=== PATIENT | female | born 1990 | race Caucasian/White ===

== ENCOUNTER 2019-12-29 08:00 | Outpatient (RCR) | payer MEDICARE, MEDICAID, SELFPAY ==
[2019-12-23 12:35] LABS: Beta HCG Quantitative 5.14 mIU/ML
[2019-12-29 13:03] LABS: Beta HCG Quantitative 5.58 mIU/ML
== END 2020-03-20 23:59 | disposition home or self-care (01) ==
LOC: ANHLAB 08:00
PROVIDERS: PCP Nurse Practitioner Family; Visit Provider Obstetrics & Gynecology
DX: O03.9 Complete or unspecified spontaneous abortion without complication (principal)
CPT/HCPCS: 36415; 84702

== ENCOUNTER 2020-11-08 09:37 | Outpatient (CLI) | payer MEDICARE, MEDICAID, SELFPAY ==
[2020-11-08 19:57] LABS: Thyroid Stimulating Hormone 0.323 uIU/mL (0.465-4.680)
[2020-11-08 21:28] LABS: Free T4 Free Thyroxine 1.11 ng/mL (0.78-2.19)
[2020-11-12 08:35] LABS: FSH 51.5 mIU/mL (***); Prolactin 2.9 ng/mL (***)
== END 2020-11-08 09:38 | disposition home or self-care (01) ==
LOC: ANHBWCLAB 09:40
PROVIDERS: PCP Nurse Practitioner Family; Visit Provider Obstetrics & Gynecology
DX: N91.2 Amenorrhea, unspecified (principal)
CPT/HCPCS: 36415; 83001; 84146; 84439; 84443

== ENCOUNTER 2021-02-06 10:35 | Outpatient (CLI) | payer MEDICARE, MEDICAID, SELFPAY ==
[2021-02-06 19:57] LABS: Free T4 Free Thyroxine 0.79 ng/mL (0.78-2.19)
[2021-02-06 20:07] LABS: Thyroid Stimulating Hormone 0.283 uIU/mL (0.465-4.680)
== END 2021-02-06 10:36 | disposition home or self-care (01) ==
PROVIDERS: PCP Nurse Practitioner Family; Visit Provider Obstetrics & Gynecology
DX: N91.4 Secondary oligomenorrhea (principal); R79.89 Other specified abnormal findings of blood chemistry
CPT/HCPCS: 36415; 84439; 84443

== ENCOUNTER 2022-08-28 09:11 | Emergency (ER) | payer MEDICARE, MEDICAID, SELFPAY ==
[2022-08-28 09:18] VITALS: BP 120/70; PULSE 79; RESP 16; TEMP 36.6; O2SAT 100
--- NOTE | 2022-08-28 09:22 | ED.URI ---
HPI - URI/Sore Throat General Chief Complaint: Upper Respiratory Infection Stated Complaint: Sore Throat/Cough Time Seen by Provider: 08/28/22 09:22 Source: patient and RN notes reviewed History of Present Illness HPI Narrative: Patient is a 32-year-old female who presents to urgent care with complaints of sore throat, cough since Friday. Patient states she has been using ibuprofen and cough drops. Also reports right ear pain, runny nose and chest congestion. Patient states that she is not using albuterol haler and some time however she does have exercise-induced asthma. Reports of some intermittent shortness of breath. Denies any fever, nausea, vomiting or exposures. No other acute complaints. No acute distress noted. Patient aware of the plan care. Some parts of this dictation were generated by voice recognition software and may contain typographical and/or grammatical inaccuracies. Related Data Home Medications Medication Instructions Recorded Confirmed atomoxetine 60 mg capsule 60 mg PO DAILY 11/08/20 08/28/22 diazepam 10 mg tablet 10 mg PO TID PRN Anxiety 11/08/20 08/28/22 fluoxetine 20 mg capsule 20 mg PO DAILY 11/08/20 08/28/22 hydroxyzine HCl 25 mg tablet 25 mg PO TID PRN Anxiety 11/08/20 08/28/22 lamotrigine 100 mg tablet 100 mg PO BID 11/08/20 08/28/22 quetiapine 300 mg tablet,extended 600 mg PO QHS 05/08/22 08/28/22 release 24 hr Allergies Allergy/AdvReac Type Severity Reaction Status Date / Time meloxicam Allergy Unknown RASH Verified 08/28/22 09:39 venom-wasp Allergy Unknown Verified 08/28/22 09:39 Review of Systems Review of Systems: CONSTITUTIONAL: Denies fever, chills, or sweats. EYES: Denies visual changes, redness, or discharge. ENT: Reports rhinorrhea, congestion, sore throat and right otalgia CARDIOVASCULAR: Denies chest pain, palpitations, or edema. RESPIRATORY: Reports a mild cough with intermittent dyspnea GASTROINTESTINAL: Denies abdominal pain, nausea, vomiting, or diarrhea. GENITOURINARY: Denies dysuria or hematuria. SKIN: Denies rash or itching. MUSCULOSKELETAL: Denies back pain, joint pain, or myalgia. NEUROLOGIC: Denies headache, numbness, or weakness. All other systems reviewed are negative, except as documented in HPI. [facility] Past Medical History Medical History Allergies Anxiety Asthma delivery delivered X4 Depression FH: cholecystectomy Migraines Obesity (BMI 30.0-34.9) Secondary oligomenorrhea Surgical History Surgical History H/O tubal ligation [place] teeth removed Family History Family History Mother Diabetes mellitus Hypertension Depression Anxiety Heart disease Disorder of thyroid Father Depression Anxiety Grandparent Cerebrovascular accident Other Family history of arthritis Family history of mental disorder Social History Social History Smoking status: Never smoker Alcohol intake: never Substance use: never Comments At the time of my signature, I reviewed and agree with the nursing past medical, surgical, social, and family history. There is no relevant family history pertinent to the patient complaint. Exam Narrative: GENERAL: This is a well-nourished, well-developed patient, in no apparent distress. HEAD: normocephalic, atraumatic. EYES: PERRL. Sclera clear/white. Vision is grossly intact. EARS: External ears normal, auditory canals clear and without drainage, mild bilateral eustachian tube dysfunction otitis. TMs normal without perforation. Hearing grossly intact. NOSE: External nose normal with no obvious nasal discharge, nares without redness, clear rhinorrhea. THROAT: Mucous membranes moist, posterior pharynx clear. Mild postnasal drainage NECK: Neck supple, non-tender without lymphade
== END 2022-08-28 09:45 | disposition home or self-care (01) ==
PROVIDERS: Emergency Provider Nurse Practitioner Family; PCP Nurse Practitioner Family
DX: J06.9 Acute upper respiratory infection, unspecified (principal); F41.9 Anxiety disorder, unspecified; F32.A Depression, unspecified
CPT/HCPCS: 87081; 87880; 99213; G0463

== ENCOUNTER 2023-04-21 11:45 | Emergency (ER) | payer MEDICARE, MEDICAID, SELFPAY ==
[2023-04-21 12:00] VITALS: BP 125/82; PULSE 73; RESP 16; TEMP 36.6; O2SAT 100
--- NOTE | 2023-04-21 12:01 | ED.URI ---
HPI - URI/Sore Throat General Chief Complaint: Upper Respiratory Infection Stated Complaint: Sore Throat Source: patient and RN notes reviewed History of Present Illness HPI Narrative: 33 yo F presents to urgent care with complaints of painful swallowing, right ear pain, and tender throat glands x 3-4 days. Pt admits to poking her left tonsil last night with her fingernail and caused it to bleed. Pt states there is now a white spot in the area and presumes it is from healing. Denies any itchy throat, fevers, chills, vomiting, diarrhea, chest pain, or SOb. Denies any congestion. Pt states she has been sleeping with her dentures in and heard it could cause an infection. Denies any dental or gum pain. Related Data Home Medications Medication Instructions Recorded Confirmed atomoxetine 60 mg capsule 60 mg PO DAILY 11/08/20 08/28/22 fluoxetine 20 mg capsule 20 mg PO DAILY 11/08/20 08/28/22 lamotrigine 100 mg tablet 100 mg PO BID 11/08/20 08/28/22 quetiapine 300 mg tablet,extended 600 mg PO QHS 05/08/22 08/28/22 release 24 hr desvenlafaxine succinate 50 mg mg PO 04/21/23 tablet,extended release 24 hr diazepam 10 mg tablet mg 04/21/23 estradiol 2 mg tablet mg 04/21/23 gabapentin 300 mg capsule mg 04/21/23 hydroxyzine HCl 25 mg tablet mg 04/21/23 progesterone micronized 100 mg mg 04/21/23 capsule topiramate 50 mg tablet mg 04/21/23 Allergies Allergy/AdvReac Type Severity Reaction Status Date / Time meloxicam Allergy Unknown RASH Verified 08/28/22 09:39 venom-wasp Allergy Unknown Verified 08/28/22 09:39 Review of Systems Review of Systems: Pertinent positives and pertinent negatives per HPI. [facility] Past Medical History Medical History Allergies Anxiety Asthma delivery delivered X4 Depression FH: cholecystectomy Migraines Obesity (BMI 30.0-34.9) Secondary oligomenorrhea Surgical History Surgical History H/O tubal ligation [place] teeth removed Family History Family History Mother Diabetes mellitus Hypertension Depression Anxiety Heart disease Disorder of thyroid Father Depression Anxiety Grandparent Cerebrovascular accident Other Family history of arthritis Family history of mental disorder Social History Social History Smoking status: Never smoker Alcohol intake: never Substance use: never Comments At the time of my signature, I reviewed and agree with the nursing past medical, surgical, social, and family history. There is no relevant family history pertinent to the patient complaint. Exam Narrative: GENERAL: This is a well-nourished, well-developed patient, in no apparent distress. HEAD: normocephalic, atraumatic. EYES: Sclera clear/white. Vision is grossly intact. EARS: External ears normal, auditory canals clear and without drainage, TMs normal without perforation. Hearing grossly intact. NOSE: External nose normal with no obvious nasal discharge, nares without redness, no rhinorrhea. THROAT: Mucous membranes moist, posterior pharynx erythremic. Bilateral tonsils are 2+ with one white spot noted to left tonsil. NECK: Neck supple, non-tender without lymphadenopathy, masses or thyromegaly. CARDIOVASCULAR: Regular rate and rhythm without murmurs, gallops, or rubs. RESPIRATORY: Clear to auscultation. Breath sounds equal bilaterally. No wheezes, rales, or rhonchi. SKIN: warm, intact with no suspicious lesions or rash, good texture and turgor. NEURO: awake, alert, and oriented to person, place and time. There were no obvious focal neurologic abnormalities. EXTREMITIES: No clubbing, cyanosis, or edema. No joint tenderness, effusion, or edema noted. BACK: Nontender without deformity or crepitus. No flank tenderness. Course
== END 2023-04-21 12:21 | disposition home or self-care (01) ==
PROVIDERS: Emergency Provider Nurse Practitioner Family; PCP Nurse Practitioner Family
DX: B34.9 Viral infection, unspecified (principal); Z79.899 Other long term (current) drug therapy
CPT/HCPCS: 87081; 87880; 99213; G0463

== ENCOUNTER 2025-03-02 10:56 | Outpatient (CLI) | payer MEDICARE, MEDICAID, SELFPAY ==
[2025-03-02 12:23] LABS: Thyroid Stimulating Hormone Reflex 0.872 uIU/mL (0.465-4.68)
== END 2025-03-02 10:57 | disposition home or self-care (01) ==
LOC: ANHLAB 10:58
PROVIDERS: PCP Nurse Practitioner Family; Visit Provider Obstetrics & Gynecology
DX: N91.4 Secondary oligomenorrhea (principal)
CPT/HCPCS: 36415; 84443